=== PATIENT | female | born 1945 | race African-American/Black ===

== ENCOUNTER → 2017-09-09 | Outpatient (CLI) | payer OTHER | LOC: MRI 08:33 | DX: K43.2 Incisional hernia without obstruction or gangrene (principal); R16.0 Hepatomegaly, not elsewhere classified; E11.8 Type 2 diabetes mellitus with unspecified complications; I15.9 Secondary hypertension, unspecified ==

== ENCOUNTER → 2017-11-06 | Outpatient (CLI) | payer OTHER ==
[~2017-11-06] MED LIST: ALDACTONE25 MG PO; CORGARD20 M1 PO; DICLOFENAC SOD100 G1 TOP; HUMALOG100 UNIT/1 SUBQ; LANTUS100 UNIT/M SUBQ; LISINOPRIL5 MG PO; MULTIVITAMINS1 EAC7 PO; NAPROXEN375 M1 PO; NORVASC10 MG PO; OMEPRAZOLE20 M2 PO; OMEPRAZOLE40 MG PO; PRAVACHOL40 MG PO; TRAMADOL 50 MG50 MG PO; VITAMIN D31000 UNIT PO; XIFAXAN550 M1 PO; [UNRECOGNIZED DRUG - OTHER] OPHTHALMIC
== END ==
LOC: RAD 08:24
DX: K44.9 Diaphragmatic hernia without obstruction or gangrene (principal); K20.9 Esophagitis, unspecified; R07.9 Chest pain, unspecified

== ENCOUNTER → 2018-01-25 | Outpatient (CLI) | payer OTHER | LOC: NUC 08:52 | DX: K44.9 Diaphragmatic hernia without obstruction or gangrene (principal); R11.0 Nausea ==

== ENCOUNTER 2018-02-24 05:24 | Inpatient (IN) | payer OTHER ==
[~2018-02-24] VITALS: Ht 162.6 cm; Wt 89.8 kg
[2018-02-24] VITALS (8 sets, daily range): BP systolic 127–161; BP diastolic 66–79
--- NOTE | ~2018-02-24 | O ---
[facility] [place] [address] OPERATIVE REPORT Name: ALEXEI TENORIO Room #: 412-P [facility] IN M.R.#: [id number] Admission: 02/24/18 Attend Phys: Jesse Morales MD, F Discharge: 03/02/18 Date of : 43 Report #: [id number] THIS REPORT FOR: //name// CC: Benjamin Morales DATE OF SERVICE: 02/24/2018 SURGEON: Jesse Morales M.D. [employer] CLAIM REPRESENTATIVE: Yovanny Fry DO. PREOPERATIVE DIAGNOSES: 1. Recurrent incisional ventral hernias x 2. 2. Hypertension. 3. Type 2 diabetes mellitus. 4. Hypercholesterolemia. POSTOPERATIVE DIAGNOSES: 1. Recurrent incisional ventral hernias x 2. 2. Hypertension. 3. Type 2 diabetes mellitus. 4. Hypercholesterolemia. PROCEDURES: 1. Exploratory laparotomy. 2. Extensive lysis of adhesions, lasting 180 minutes. 3. Complex repair of recurrent, incarcerated incisional ventral hernias x 2 with Prolene mesh. 4. Bilateral component separation/transversus abdominis release (TAR). 5. Abdominal wall reconstruction. 6. Debridement of necrotic abdominal wall including skin, scar tissue, subcutaneous tissue, muscle and fascia (8 x 4 cm equals 32 cm2). 7. Adjacent tissue transfer (37 m x 8.5 cm equals 255 cm2). 8. Placement of topical negative pressure dressing - UZIEL. 9. This is modifier-22 operation based on the extensive length of time necessary to takedown adhesions and the resulting long operation (5 hours). Extensive dissection was also necessary in order to approximate the tissue. ANESTHESIA: General endotracheal anesthesia, epidural anesthesia. ESTIMATED BLOOD LOSS: 150 mL. TOTAL FLUIDS: 3200 mL crystalloid +150 mL albumin. [address] [address] OPERATIVE REPORT Name: ALEXEI TENORIO Room #: 412-P [facility] IN [facility]#: [id number] Admission: 02/24/18 Attend Phys: Jesse Morales MD, F Discharge: 03/02/18 Date of : 43 Report #: [id number] URINE OUTPUT: 125 mL. SPECIMEN: 1. Scar, skin, subcutaneous tissue, muscle and fascia (necrotic abdominal wall). 2. Right lateral hernia sac. COMPLICATIONS: None appreciated. INDICATIONS FOR PROCEDURE: This is a 72-year-old female, patient of Dr. Benjamin Gonzalez, who has had difficulty with bulging and discomfort in the upper abdomen and right lateral abdomen. She has a history of ovarian cancer approximately 30 years ago, for which she underwent a hysterectomy with bilateral salpingo-oophorectomy and omentectomy. She developed a ventral hernia and underwent subsequent hernia repair with mesh. More recently, the patient had recurrence of her hernia with infection and she underwent mesh explantation with repair of the hernia using Biomesh in an open fashion in 06/2016. This also became infected and required removal with replacement of another piece of Biomesh 4 months later in 10/2016 by the same surgeon. This leads to her most recent symptoms of recurrent bulging and abdominal pain. Her bowels are functional. The patient was initially seen in 07/2017 and underwent an abdominal ultrasound showing a polycystic liver, stable (being followed at the [facility] for this). The patient was also worked up for melanotic stools. EGD showed questionable Burgos's esophagus. She was also found to have a hiatal hernia. Esophageal motility study was normal and no gastroesophageal reflux was seen on barium esophagram. Her gallbladder was worked up in addition to this and with no gallstones, she underwent a PIPIDA scan showing an 86% ejection fraction, with no reproduction of her symptoms. The patient presents today for open repair of her recurrent incisional ventral hernia. OPERATIVE FINDINGS: The patient had necrotic abdominal wall, consisting of skin, subcutaneous tissue, muscle and fascia, required debridement. Upon entry into the abdominal cavity, the patient had extensive intra-abdominal adhesions and required lysis for just over 3 hours. After completely lysing all adhesions, the polycystic liver was appreciated. Omentum covered the polycystic liver and the underlying gallbladder was palpable with no stones. The patient's stomach appeared normal. Bowel was incarcerated within the hernia defects; however, the bowel itself was viable. Resection of bowel was not necessary. The bowel was run multiple times after freeing all adhesions and there was no evidence for iatrogenic injury. The old biologic mesh was encountered and a firm nodule was also present, which may have represented either mesh or fat necrosis. Nonetheless, this was removed. No other significant intra-abdominal pathology was seen. After completing the transversus abdominis release, the posterior fascia was able to be approximated without difficulty. There was no [facility] [address] [place] [address] OPERATIVE REPORT Name: ALEXEI TENORIO Room #: 412-P [facility] IN M.R.#: [id number] Admission: 05/16/18 Attend Phys: Jesse Morales MD, F Discharge: 03/02/18 Date of : 43 Report #: [id number] tension on the closure. The cavity just anterior to layer measured at 30 cm x 30 cm. The anterior fascia was able to be approximated without tension as well. Mobilization of the subcutaneous tissue was necessary (adjacent tissue transfer) in order to bring the subcutaneous tissue together in a relatively tension-free fashion. At the conclusion of the operation, sponge, needle, and instrument counts were correct. The patient tolerated the procedure well. DESCRIPTION OF PROCEDURE IN DETAIL: After the risks, benefits and expectations of the operation were discussed in detail with the patient, informed consent was obtained. The patient was identified in the preoperative holding area. She was given IV antibiotics as documented in the chart in line with the SCIP metrics. The patient was then taken to the operating room and she was placed in the supine position. SCDs were placed in the patient's bilateral lower extremities and pneumatic compression was initiated. An epidural had been placed by anesthesia prior to her being taken to the operating room. The patient was given IV sedation and she was intubated without incident. Her abdomen was then prepped and draped in the standard sterile fashion. A time-out was performed to identify the correct patient and procedure. A sharp #10 blade scalpel was used to make a vertical elliptoid incision around the old scar, which extended more to the right. The scar was approximately 8 cm wide. The scar was then excised with cautery. The underlying scar tissue was removed as well, which included subcutaneous tissue down to fascia. The fascia was then entered. Areas of nonviable fascia and muscle were also present. The fascia was opened along the length of the incision and while doing so, adhesions from the small bowel to the midline were carefully taken down with blunt dissection, sharp dissection and judicious use of electrocautery. After fully opening the abdomen, the lysis of adhesions was undertaken. This is extensive and started in the mid portion of the small bowel. Interloop adhesions were carefully taken down with blunt dissection, sharp dissection and electrocautery as necessary. I then lysed the adhesions proximally up to the ligament of Treitz. I then worked distally down to the ileocecal valve. The entire bowel was freed. The bowel was then run distal to proximal and proximal to distal to ensure no serosal or other injury had occurred. Component separation was undertaken next. The right rectus sheath was opened and dissection was carried posterior to the rectus abdominis muscle laterally to the confluence of the anterior and posterior sheath. The neurovascular bundle was seen running along the backside of the muscle. I then encountered the transversus abdominis muscle. I divided this longitudinally with electrocautery. The tissue posterior to the transversus muscle was mobilized more laterally along the transversalis fascia. The defects that were encountered were closed with running 3-0 Vicryl sutures. The right lateral hernia defect deep to the right subcostal scar was encountered and closed with a running 3-0 Vicryl suture as well. I then repaired the right subcostal hernia with a running looped 0 Prolene suture to close the fascia anterior to the [address] [address] OPERATIVE REPORT Name: ALEXEI TENORIO Room #: 412-P [facility] IN M.R.#: [id number] Admission: 02/24/18 Attend Phys: Jesse Morales MD, F Discharge: 03/02/18 Date of : 43 Report #: [id number] transversalis fascia. The left transversus abdominis release/component separation was undertaken next. The left rectus sheath was opened with electrocautery. Dissection was carried posterior to the rectus abdominis muscle to the confluence of the anterior and posterior sheath. The transversus abdominis muscle then was encountered and divided longitudinally along the length of the midline incision. Dissection was carried posterior to the muscle, just anterior to the transversalis fascia laterally. Small openings were closed with running 3-0 Vicryl sutures. I then excised the hernia sac and necrotic abdominal wall. The right lateral subcostal hernia sac was removed with electrocautery. Bleeding points were made hemostatic. The excised tissue measured 8 cm x 4 cm. I then closed the posterior fascia in the midline with a running looped #1 PDS, extending inferiorly below the arterial line to close the peritoneum, after ensuring hemostasis and that the sponge, needle and instrument counts were correct within the abdominal cavity. The tissue was approximated in a tension-free fashion. Total abdominal wall reconstruction consisted of placement of Prolene mesh anterior to the released tissue. The cavity was measured at 30 cm x 30 cm. The mesh was placed within the cavity and tailored to fit the cavity by cutting the excess mesh around the corners. The mesh was then glued into place with 20 mL of Tisseel. The midline closure itself was measured to be 25 cm long. A concentrated application of the Tisseel in the right upper quadrant and upper midline where her hernias were most prominent. Four grams of Luis was then applied to the cavity to ensure hemostasis. A 19-Palestinian drain x 2 were placed within the cavity and brought out through stab wounds inferiorly on each side. The drains were secured to the skin with 2-0 nylon sutures. Internally, the drains crossed in the lower midline and drained the contralateral side. The anterior fascia was then closed with a running looped #1 PDS suture in a tension-free fashion. I then dissected along the fascia laterally 4.5 cm on the right and 4 cm on the left over length of 30 cm. This measured 255 square centimeters. Adjacent tissue transfer was then performed. Mobilization of the subdermal tissue was necessary in order to bring the tissue together in a tension-free fashion. Electrocautery was used to mobilize the tissue. Two layers of simple interrupted 3-0 Vicryl sutures were then used to close the subcutaneous/subdermal tissue, both deep and superficial layers. After bringing the tissue together, the wound was irrigated. The skin was closed with wyatt. The UZIEL dressing was then applied after cleansing and drying the skin. A good seal was present. The patient tolerated procedure well. She was awakened, [facility] [address] [place] [address] OPERATIVE REPORT Name: ALEXEI TENORIO Room #: 412-P [facility] IN M.R.#: [id number] Admission: 02/24/18 Attend Phys: Jesse Morales MD, F Discharge: 03/02/18 Date of : 43 Report #: [id number] extubated and taken to the recovery room in stable condition, with no apparent intraoperative complications. By: [id number] Jesse Morales MD, FACS /nt
--- NOTE | ~2018-02-24 | EKG ---
[address] [employer] [place] [address] ELECTROCARDIOGRAM REPORT Name: ALEXEI TENORIO Room #: 150-2 ADM IN .R.#: [id number] Admission: 02/24/18 Attend Phys: Jesse Morales MD, F Discharge: Date of : 43 Report #: [id number] THIS REPORT FOR: //name// [facility] Test Date: 2018-02-24 Test Time: 06:40:02 Pat Name: ALEXEI COVARRUBIAS Department: Room: 150 2 Gender: F Master Printer: MERON : 1945 Requested By: Jesse Morales Order Number: [id number] MD: Alireza Green Measurements Intervals [place] Rate: 73 P: 63 [place]: 155 QRS: 10 QRSD: 90 T: 15 QT: 432 QTc: 476 Interpretive Statements Sinus rhythm Borderline T wave abnormalities No previous ECG available for comparison Electronically Signed On 02-24-2018 8:28:18 CDT by Alireza Green [email or web address] <ELECTRONICALLY SIGNED> By: Alireza Green MD, [facility] 02/24/18 0828 [id number] 0640 Alireza Green MD, FACC /EPI
--- NOTE | ~2018-02-24 | HC ---
[facility] [place] [place] [address] CONSULTATION Name: ALEXEI TENORIO Room #: 405-P ADM IN M.R.#: [id number] Admission: 02/24/18 Attend Phys: Jesse Morales MD, F Discharge: Date of : 43 Report #: [id number] THIS REPORT FOR: //name// CC: Benjamin Morales MD DATE OF SERVICE: 02/26/2018 REASON FOR CONSULTATION: Acute kidney injury. HISTORY OF PRESENT ILLNESS: This is a delightful 72-year-old female who was brought in electively on 02/24/2018 and had an extensive ventral herniorrhaphy performed as well as reconstruction of her abdominal wall. She had old incarcerated incisional hernias. That surgery was done by Dr. Morales. There was some involvement of her bowel with those hernias. She had extensive lysis of adhesion. Nevertheless, surgery itself went well. She continues to have an NG tube in place. She has not yet started oral liquids. She has been on IV fluids. She received 3.2 L of crystalloid intraoperatively. More recently, she has been on IV fluids in the amount of 100 mL per hour of D5 normal saline. She has gotten oliguric though. In looking at her I's and O's since surgery, she has only had 200-300 mL of urine output, most likely. She has had over the past 2 days about 3.8 L of intake. She has had maybe 500 out through a couple of drains and she has had some NG output. There is a bit more urine in her Perez at this time, but her creatinine level has gone up rather dramatically. Admission creatinine level was 1.6, which is very near her baseline. Yesterday, it was 3.1 and today it is 4.6. Potassium level has gone up from 3.4-5.4. She has glucose of 148 and is on some D5 normal saline. Hemodynamically, she has been okay. At this time, the patient states she is feeling fairly well. Pain is well controlled. She still has an epidural in place. She denies nausea or vomiting. She denies dyspnea or cough. I did have a long discussion with her about her kidneys. She has been followed for quite a few years by one of my associates, Alix Godfrey MD. Her last check in the office was within the past month and her creatinine level was 1.47 at that time. She has had a fairly stable chronic kidney disease stage 3. I cannot quite tell why it is thought she has the CKD. Additionally, she has a history of polycystic liver disease. This is distinctly different from the liver cyst associated with polycystic kidney disease. It also appears to be an autosomal dominant inheritance. She knows that her father had this. She also has a sister who has it and her sister has actually had a liver transplant. The patient has been evaluated at [facility] for potential liver transplant, but she is not on the list and that has really never [address] [address] CONSULTATION Name: SOPHIA ALEXEI COVARRUBIAS Room #: 405-P ADM IN M.R.#: [id number] Admission: 02/24/18 Attend Phys: Jesse Morales MD, F Discharge: Date of : 43 Report #: [id number] been arranged. In reviewing her labs, it looks like she has fairly well preserved hepatic function. In addition, the patient states that when she was at [facility], she was told she only had one functioning kidney. I was able to find an MRI scan done here at [facility] dated 09/09/2017. I have reviewed that scan and she actually has two kidneys. The right kidney sits rather low in the retroperitoneum and might be somewhat pushed down by her very large liver. Nevertheless, there are a couple of small cysts in the kidneys, but nothing representing polycystic kidney disease. There is no hydronephrosis and I saw no other anatomic problems with either kidney. ADDITIONAL PAST MEDICAL HISTORY: Remote ovarian carcinoma that was in the early around 1993. She had surgery and then several rounds of chemotherapy and has basically been cured of that disease. She has no active disease from that standpoint. She has some type 2 diabetes and this most likely is the cause of some of her chronic kidney disease. She has had longstanding hypertension. She also has some coronary artery disease, degenerative arthritis, hyperlipidemia, previous depression. MEDICATIONS: Her chronic medications include tramadol 50 mg for pain, omeprazole 40 mg daily, Lantus, Humalog, vitamin D3 1000 units daily, spironolactone 25 mg b.i.d., lisinopril 5 mg daily, Xifaxan 550 mg b.i.d., topical diclofenac. Also, some p.r.n. naproxen, nadolol 40 mg daily, pravastatin 20 mg daily. ALLERGIES: OXYCODONE AND HYDROCODONE. FAMILY HISTORY: Father had diabetes and renal failure and was actually on dialysis. He also had a polycystic liver disease. She has a sister who had polycystic liver disease and has received a liver transplant. She has no renal disease. The patient's mother also had some chronic kidney disease, etiology undetermined. SOCIAL HISTORY: The patient is , lives in [place], [place]. She is retired. She is a nonsmoker. REVIEW OF SYSTEMS: States she is breathing well. Denies dyspnea, cough, no chest pain at this time. Abdominal pain is well controlled. No nausea or vomiting. No difficulty voiding urine usually. She has a Perez catheter at this time. She does have some chronic arthralgias for which she takes the diclofenac and then naproxen. She is unaware of fevers, chills or sweats. PHYSICAL EXAMINATION: GENERAL: A very pleasant 72-year-old female, awake, alert and oriented. VITAL SIGNS: Blood pressure 136/70, heart rate 90, temperature 98.5, respiratory rate 16, oxygen saturation 94%. [facility] [address] [place] [address] CONSULTATION Name: SOPHIA ALEXEI COVARRUBIAS Room #: 405-P [facility] IN ..#: [id number] Admission: 02/24/18 Attend Phys: Jesse Morales MD, F Discharge: Date of : 43 Report #: [id number] HEENT: Shows pupils are equal and reactive. Sclerae nonicteric. Oral mucosa is dry. She has an NG tube in place. NECK: Veins are not distended. CHEST: Clear bilaterally, although there is a bit of restriction of flow related to her abdominal binder in place. CARDIOVASCULAR: Heart has a regular rate and rhythm, borderline tachycardia. ABDOMEN: Quiet. Abdominal binder is in place. I left it in place. I did not push hard on her abdomen through the binder. EXTREMITIES: Show no peripheral edema. She has 1+ peripheral pulses. NEUROLOGIC: She is grossly intact. LABORATORY DATA: From today, sodium 136, potassium 5.4, chloride 109, bicarbonate 23, BUN 53, creatinine 4.6, glucose 148, calcium 8.1 and magnesium 2.4. From admission, AST 41, ALT 23, total bilirubin 0.5. Her INR is 1.1. From today, white count 10.1, hemoglobin 8.3, hematocrit 25.5, platelets 152,000. Differential on the white count 79 neutrophils, 12 lymphs, 8 monos, no urine study is available on the chart. ASSESSMENT: 1. Acute kidney injury. This is 48 hours postop. She has been oliguric. She has been on IV fluids and although she has not been frankly hypotensive, I do not think she is volume deplete. With the extensive abdominal surgery, she no doubt has third spaced a lot of fluid into her abdomen. She is oliguric. Potassium level is up slightly. She needs additional IV fluid and will push that intake up somewhat. I cannot find that she has received yris nephrotoxic exposures. No contrast exposures. I do want her off the diclofenac, which she is getting topically, but there probably is some significant absorption of that medication transcutaneously. We will want to see her urine output increased. We will watch closely in her care. Her potassium level is up slightly. It should come down as urine output improves. 2. Chronic kidney disease stage 3, likely on the basis of diabetic nephropathy. Baseline creatinine is 1.47. She was at that level very recently in the office and she was very near that level on presentation. Again, there was some concern about a single functioning kidney, but it appears on my look at her MRI scan from 18 months ago that she had two fairly normal appearing kidneys. There is no record that I can find in her office chart of only single kidney. 3. Two days post-extensive ventral herniorrhaphy and abdominal wall reconstruction. Again hemodynamically, she has done fairly well and she is remarkably free of symptoms at this time, although she is still on the epidural. 4. 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 She has a family history of this. Hepatic function has been fairly good. She has been evaluated for transplant, but it does not appear that she is active on the list and does not appear that she is even really a candidate as she has fairly well preserved hepatic function. 5. Type 2 diabetes mellitus. Sugars have been up somewhat. I will switch her from D5 normal saline to normal saline as we do need to increase her fluids. [facility] [address] [place] [address] CONSULTATION Name: SOPHIA COVARRUBIASALEXEI Liborio Room #: 405-P ADM IN .R.#: [id number] Admission: 02/24/18 Attend Phys: Jesse Morales MD, F Discharge: Date of : 43 Report #: [id number] 6. Hyperkalemia associated with her elevated creatinine and also possibly some due to the elevated glucose. Again, we will recheck that and once her renal function improves, we should see that number coming down. 7. Hypertension by history. Not getting antihypertensives at this time and will follow closely. 8. Remote history of ovarian cancer. No longer active. PLAN: 1. Check urine studies including urinalysis and fractional excretion of sodium. 2. Switch her IV fluids to normal saline at 200 mL per hour. 3. Follow up labs in the morning. 4. Closely monitor hemodynamics. 5. As it is frequently the case with extensive abdominal surgeries, it may take some time for the third spacing of fluid to switch back and for her renal function to improve. We will watch closely on all of this. <ELECTRONICALLY SIGNED> By: Nelson Salas MD 02/27/18 1117 [id number] Nelson Salas MD /nt
[~2018-02-24 05:24] MED LIST changes: -NORVASC10 MG PO; -TRAMADOL 50 MG50 MG PO
[2018-02-24 07:00] LABS: HEMATOCRIT 33.4 % (37.0-47.0); HEMOGLOBIN 10.9 gm/dL (12.0-15.0); MCH 26.7 pg (26.0-34.0); MCHC 32.6 g/dL (28.0-37.0); RBC 4.07 mil/uL (4.20-5.00); RDW 14.7 % (10.5-14.5); WBC 4.8 thou/uL (4.0-11.0)
[2018-02-24 07:50] LABS: CREATININE 1.6 mg/dL (0.6-1.0); POTASSIUM 3.4 mmol/L (3.5-5.1)
[2018-02-24 07:55] LABS: ALBUMIN 2.6 g/dL (3.4-5.0); TOTAL BILIRUBIN 0.5 mg/dL (<0.1-1.0); TOTAL PROTEIN 6.7 g/dL (6.4-8.2)
[2018-02-24 07:59] LABS: INR 1.1; PROTIME 10.5 Seconds (9.3-11.4)
[2018-02-25 05:11] VITALS: BP 117/60
[2018-02-25 05:30] LABS: ABSOLUTE NEUTROPHILS 9.1 thou/uL (1.4-8.2); HEMOGLOBIN 9.9 gm/dL (12.0-15.0); LYMPHOCYTES 6.1 % (24.0-44.0); MCH 26.8 pg (26.0-34.0); MCHC 31.9 g/dL (28.0-37.0); MCV 84.2 fL (80.0-100.0); MONOCYTES 9.9 % (1.0-8.0); PLATELET COUNT 210 thou/uL (150-400); RBC 3.68 mil/uL (4.20-5.00); RDW 15.2 % (10.5-14.5); WBC 10.8 thou/uL (4.0-11.0)
[2018-02-25 05:37] LABS: CALCIUM 8.1 mg/dL (8.5-10.1); MAGNESIUM 2.1 mg/dL (1.8-2.4)
[2018-02-25 05:41] LABS: CREATININE 3.1 mg/dL (0.6-1.0); POTASSIUM 4.9 mmol/L (3.5-5.1)
[2018-02-25 08:00] VITALS: BP 112/60
[2018-02-25 16:59] VITALS: BP 129/66
[2018-02-25 19:52] VITALS: BP 136/68
[2018-02-26 04:00] VITALS: BP 125/53
[2018-02-26 06:04] LABS: BASOPHILS 0.3 % (0.0-2.0); EOSINOPHILS 0.2 % (0.0-3.0); HEMATOCRIT 25.5 % (37.0-47.0); HEMOGLOBIN 8.3 gm/dL (12.0-15.0); LYMPHOCYTES 12.1 % (24.0-44.0); MCH 27.9 pg (26.0-34.0); MCHC 32.5 g/dL (28.0-37.0); MCV 85.7 fL (80.0-100.0); MONOCYTES 8.3 % (1.0-8.0); PLATELET COUNT 152 thou/uL (150-400); POLYS 79.1 % (36.0-66.0); RBC 2.97 mil/uL (4.20-5.00); RDW 15.4 % (10.5-14.5); WBC 10.1 thou/uL (4.0-11.0)
[2018-02-26 08:56] VITALS: BP 136/70
[2018-02-26 09:16] LABS: CALCIUM 8.1 mg/dL (8.5-10.1); MAGNESIUM 2.4 mg/dL (1.8-2.4); POTASSIUM 5.4 mmol/L (3.5-5.1)
[2018-02-26 09:19] LABS: CREATININE 4.6 mg/dL (0.6-1.0)
[2018-02-26 17:26] VITALS: BP 164/89
[2018-02-26 17:47] LABS: URINE BILIRUBIN NEGATIVE (Negative); URINE BLOOD 3+ (Negative); URINE COLOR YELLOW; URINE GLUCOSE-RANDOM* NEGATIVE (Negative); URINE KETONES TRACE (Negative); URINE LEUKOCYTES NEGATIVE (Negative); URINE NITRITE NEGATIVE (Negative); URINE PROTEIN (DIPSTICK) 2+ (Negative); URINE SPECIFIC GRAVITY 1.025 (1.005-1.035); URINE UROBILINOGEN 0.2 E.U./dl (0.2-1.0)
[2018-02-26 17:51] LABS: URINE CLARITY HAZY
[2018-02-26 17:53] LABS: CASTS None Seen /LPF (None Seen); CRYSTALS None Seen /LPF (None Seen); SQUAMOUS 0-3 Few /LPF (0-3); URINE RBC 3-10 Few /HPF (0-2); URINE WBC 0-5 Rare /HPF (0-5)
[2018-02-26 19:35] VITALS: BP 163/86
[2018-02-27 04:20] VITALS: BP 141/79
[2018-02-27 04:57] LABS: ABSOLUTE NEUTROPHILS 7.9 thou/uL (1.4-8.2); BASOPHILS 0.2 % (0.0-2.0); EOSINOPHILS 1.2 % (0.0-3.0); HEMATOCRIT 23.2 % (37.0-47.0); HEMOGLOBIN 7.4 gm/dL (12.0-15.0); LYMPHOCYTES 11.5 % (24.0-44.0); MCHC 32.1 g/dL (28.0-37.0); MCV 84.1 fL (80.0-100.0); MONOCYTES 8.4 % (1.0-8.0); PLATELET COUNT 163 thou/uL (150-400); POLYS 78.7 % (36.0-66.0); RBC 2.76 mil/uL (4.20-5.00)
[2018-02-27 05:12] LABS: ALBUMIN 1.6 g/dL (3.4-5.0); CALCIUM 7.3 mg/dL (8.5-10.1); PHOSPHORUS 2.6 mg/dL (2.5-4.9); POTASSIUM 4.9 mmol/L (3.5-5.1)
[2018-02-27 11:10] VITALS: BP 143/74
[2018-02-27 11:49] VITALS: BP 169/81
[2018-02-27 16:38] VITALS: BP 151/65
[2018-02-27 20:00] VITALS: BP 158/87
[2018-02-28 04:00] VITALS: BP 143/74
[2018-02-28 04:48] LABS: HEMATOCRIT 23.7 % (37.0-47.0); HEMOGLOBIN 7.8 gm/dL (12.0-15.0); MCH 27.5 pg (26.0-34.0); MCHC 32.7 g/dL (28.0-37.0); MCV 83.9 fL (80.0-100.0); RBC 2.83 mil/uL (4.20-5.00); RDW 15.3 % (10.5-14.5); WBC 9.1 thou/uL (4.0-11.0)
[2018-02-28 05:04] LABS: ALBUMIN 1.6 g/dL (3.4-5.0); CALCIUM 8.2 mg/dL (8.5-10.1); CREATININE 3.9 mg/dL (0.6-1.0); MAGNESIUM 2.6 mg/dL (1.8-2.4); PHOSPHORUS 3.6 mg/dL (2.5-4.9); POTASSIUM 5.5 mmol/L (3.5-5.1)
[2018-02-28 11:53] VITALS: BP 157/84
[2018-02-28 16:18] VITALS: BP 157/90
[2018-02-28 18:33] VITALS: BP 184/71; BP 188/93
[2018-02-28 19:00] VITALS: BP 171/83
[2018-03-01 01:28] VITALS: BP 165/91
[2018-03-01 06:43] LABS: ALBUMIN 1.8 g/dL (3.4-5.0); CALCIUM 8.3 mg/dL (8.5-10.1); CREATININE 3.3 mg/dL (0.6-1.0); PHOSPHORUS 3.3 mg/dL (2.5-4.9); POTASSIUM 5.3 mmol/L (3.5-5.1)
[2018-03-01 07:11] LABS: HEMATOCRIT 27.8 % (37.0-47.0); HEMOGLOBIN 9.1 gm/dL (12.0-15.0); MCH 27.2 pg (26.0-34.0); MCHC 32.7 g/dL (28.0-37.0); MCV 83.2 fL (80.0-100.0); RBC 3.34 mil/uL (4.20-5.00); RDW 15.2 % (10.5-14.5); WBC 7.9 thou/uL (4.0-11.0)
[2018-03-01 08:44] VITALS: BP 173/87
[2018-03-01 15:50] VITALS: BP 181/84
[2018-03-01 20:00] VITALS: BP 164/90
[2018-03-02 04:00] VITALS: BP 165/69
[2018-03-02 06:29] LABS: ALBUMIN 1.9 g/dL (3.4-5.0); CALCIUM 8.4 mg/dL (8.5-10.1); CREATININE 2.8 mg/dL (0.6-1.0); PHOSPHORUS 3.3 mg/dL (2.5-4.9)
[2018-03-02 06:34] LABS: POTASSIUM 5.1 mmol/L (3.5-5.1)
[2018-03-02 08:07] VITALS: BP 190/83
[2018-03-02] MEDS ORDERED: TRAMADOL 50 MG50 MG PO (09:38)
[2018-03-02 10:00] VITALS: BP 190/83
[2018-03-02 10:02] VITALS: BP 190/83
[2018-03-02] MEDS ORDERED: NORVASC10 MG PO (10:49)
== END 2018-03-02 13:05 | disposition home health service (06) | DRG 335 ==
LOC: 4N 05:24 → TBA 05:24 → PRE 08:16 → 4N 15:08 → PRE 02-25 14:26 → 4E 02-27 16:22 → 4N 03-01 01:12 → ENTRNSPT 03-02 12:49 → EDTRNSPTSTS 03-02 12:52 → 4N 03-02 13:05
PROVIDERS: Anesthesiology; Internal Medicine; Internal Medicine Nephrology; Surgery
DX: K43.0 Incisional hernia with obstruction, without gangrene (principal); E43 Unspecified severe protein-calorie malnutrition; N17.9 Acute kidney failure, unspecified; Q44.6 Cystic disease of liver; Q60.0 Renal agenesis, unilateral; E87.2 Acidosis; K72.90 Hepatic failure, unspecified without coma; N18.3 Chronic kidney disease, stage 3 (moderate); E11.22 Type 2 diabetes mellitus with diabetic chronic kidney disease; I12.9 Hypertensive chronic kidney disease with stage 1 through stage 4 chronic kidney disease, or unspecified chronic kidney disease; I25.10 Atherosclerotic heart disease of native coronary artery without angina pectoris; M19.90 Unspecified osteoarthritis, unspecified site; E78.5 Hyperlipidemia, unspecified; F32.9 Major depressive disorder, single episode, unspecified; E87.5 Hyperkalemia; J45.909 Unspecified asthma, uncomplicated; E78.00 Pure hypercholesterolemia, unspecified; D64.9 Anemia, unspecified; Z76.82 Awaiting organ transplant status; Z92.21 Personal history of antineoplastic chemotherapy; Z79.899 Other long term (current) drug therapy; Z88.8 Allergy status to other drugs, medicaments and biological substances; Z83.3 Family history of diabetes mellitus; Z83.79 Family history of other diseases of the digestive system; Z84.1 Family history of disorders of kidney and ureter; Z85.43 Personal history of malignant neoplasm of ovary; Z68.34 Body mass index [BMI] 34.0-34.9, adult
CPT/HCPCS: 10783; 10790; 50010; 50101; 50386; 50455; 51412; 51437; 52287; 56524; 56525; 56526; 57092; 62110; 62900; 65002; 65075; 65130; 70005